=== PATIENT | male | born 1960 | race Caucasian/White ===

== ENCOUNTER 2021-03-06 17:44 | Inpatient (IN) ==
--- NOTE | 2021-03-06 17:12 | History & Physical Report ---
Date of Service March 06, 2021 Assessment & Plan (1) Mass of larynx: Plan: For semiemergent/emergent tracheostomy under local followed by direct laryngoscopy and esophagoscopy and biopsies. 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 for emergent tracheostomy Allergies Allergy/AdvReac Type Severity Reaction Status Date / Time No Known Drug Allergies Allergy Unknown Verified 03/06/21 15:24 Home Medications Medication Instructions Recorded Confirmed Type albuterol sulfate 90 mcg/actuation 1 inh INHALATION Q6H PRN #8 g 03/04/21 03/06/21 Rx aerosol inhaler amoxicillin 875 mg-potassium 1 tab PO BID #20 tab 03/04/21 03/06/21 Rx clavulanate 125 mg tablet (Augmentin) prednisone 20 mg tablet 60 mg PO DAILY 4 Days #12 tab 03/04/21 03/06/21 Rx Past Med/Surg History Medical History No pertinent past medical history Surgical History History of thumb surgery 2004 Family History Mother Cancer Hypertension Father Cancer Hypertension Heart disease Hearing loss Other No family history of bleeding disorder Denies family history of Asthma Social History Smoking Status: Current every day smoker Tobacco Type: Cigarettes packs per day: 1; Hx Alcohol Use: No Hx Substance Use: No Preferred Language: Algerian Communication Ability: Effective marital status: Single current occupational status: employed current occupation: Telehealth Case Manager Feels Safe at Home: Yes Physical Exam Constitutional: WD/WN, vitals as above With audible hoarseness no actual stridor Eyes: PERRL, conjunctivae normal, anicteric sclerae ENMT: external ear and nose normal, oropharynx normal 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
[2021-03-06] MEDS ORDERED: ceFAZolin 2,000 MG/15 ML IV PUSH IV ONE (18:28)
[2021-03-06] MEDS ORDERED: LIDOCAINE 2%/EPINEPHRINE 1:100,000 20ML ONE (18:55)
[2021-03-06] MEDS ORDERED: EpINEphrine HCL INJ 1 MG/ML 1ML SYRINGE ONE (18:57)
--- NOTE | 2021-03-06 19:37 | Anesthesiology Consultation ---
Date of Service March 06, 2021 Assessment & Plan Chart Review Chart Review: Acceptable Risk for Surgery and Patient NOT seen in Pre Admission Testing Consults Requested none ASA [id number] Proposed Anesthesia Anesthesia Type: MAC Risk / Benefits Reviewed With: PT / POA / Parent / Guardian, Accepts Plan and Informed Consent Obtained Additional Notes Patient left AMA 2 days ago. At that time had a known airway tumor and was hyponatremic. He represented today with worsening airway and requires emergent trach placement per Dr. Fournier. He is not appropriately NPO. He cannot lie flat. Repeat labs ordered to check sodium. Will plan for local trach with 1-2 mg of midazolam only. Cannot have more sedation. Even with this plan, pt is at high risk for loss of airway. Will call in NON MORSE INTERCEPT TECHNICIAN to ensure an extra set of hands in the event of airway loss. If repeat sodium is no longer critical patient can have GA via trach after trach is placed for biopsy. If he remains hyponatremic, GA for airway biopsy should be delayed until his hyponatremia is managed. History Surgery Operation Date: 03/06/21 11:15 Proposed Procedures p Tracheostomy, - Reina Fournier MD s Direct Laryngoscopy, - Reina Fournier MD s Esophagoscopy with Biopsies - Reina Fournier MD Height/Weight Height: 6 ft 1 in Weight: 87.5 kg Allergies Allergy/AdvReac Type Severity Reaction Status Date / Time No Known Drug Allergies Allergy Unknown Verified 03/06/21 18:04 Medications Home Medications Medication Instructions Recorded Confirmed Last Taken albuterol sulfate 90 mcg/actuation 1 inh INHALATION Q6H PRN #8 g 03/04/21 03/06/21 03/06/21 14:00 aerosol inhaler amoxicillin 875 mg-potassium 1 tab PO BID #20 tab 03/04/21 03/06/21 03/06/21 04:30 clavulanate 125 mg tablet (Augmentin) prednisone 20 mg tablet 60 mg PO DAILY 4 Days #12 tab 03/04/21 03/06/21 03/06/21 04:30 NPO Date Last Intake of Fluids: 03/06/21 Time Last Intake of Fluids: 12:00 Date Last Intake of Solids: 03/06/21 Time Last Intake of Solids: 12:00 Last Intake of Solids Comment: lois, Chewed tobacco at 2 PM Past Medical History Medical History History of alcohol abuse pt has been sober for 18 years from the date of February 2021 No pertinent past medical history Smoker Exercise / Class Metabolic Activity III < 4 Walking/Shop/Light housework Negative for chest pain - positive for SOB Past Family History Family History Mother Cancer Hypertension Father Cancer Hypertension Heart disease Hearing loss Other No family history of bleeding disorder Denies family history of Asthma Past Surgical History Surgical History History of thumb surgery 2004 Past Anesthesia History No Hx of Anesthesia Complications History of PONV No Hx of PONV and No Hx of Motion Sickness Social History Smoking Status: Current every day smoker tobacco type: cigarettes Smoking cigarettes per day: 15 Do You Dip or Chew Tobacco: Yes Hx Alcohol Use: No Hx Substance Use: No substance use type: does not use Review of Systems Patient denies active symptoms of GERD. Positive for SOB Unable to lie completely flat Negative for CP Physical Exam Vital Signs Last Vital Signs Temp 36.6 C 03/06/21 18:09 Pulse 96 H 03/06/21 18:09 Resp 18 03/06/21 18:09 BP 116/76 03/06/21 18:09 Pulse Ox 97 03/06/21 18:09 Constitutional not obese ENMT Mouth: + poor dentition (extensive peridontal disease, missing teeth, denies loose teeth); no TMJ abnormality and oral opening not small Thyromental Distance: > or= 3.5 Finger Breadths Mallampati Class: III Neck normal visual inspection; neck extension not limited Respiratory normal respiratory effort Auscultation: + diminished lung sounds and + wheezes Cardiovascular Rate/Rhythm: regular rate and regular rhythm Heart Sounds: no murmur Neurologic moves all extremities Psychiatric Orientation: alert and oriented x 3 Testing Electrocardiogram Date: 03/04/21 Findings: + NSR @ (82) Left axis deviation Abnormal ECG No previous ECGs available
[2021-03-06] MEDS ORDERED: MIDAZOLAM HCL 1 MG/ML 2ML VIAL ONE ×2 (20:05→20:51)
[2021-03-06 20:16] LABS: BUN Creatinine Ratio 31.8 (10-20); Calcium 9.2 mg/dl (8.5-10.1); Creatinine Clr Calc Pharmacy 109.6 ml/min; Est GFR (African American) 112.2 ml/min; Est GFR (Non-African American) 96.8 ml/min; Potassium 3.9 mmol/L (3.5-5.1)
[2021-03-06] MEDS ORDERED: ALBUTEROL HFA INHALER 8.5 GM ONE (20:26)
[2021-03-06] MEDS ORDERED: PROPOFOL IV EMULSION 10 MG/ML 20 ML VIAL IV ONE ×2 (20:52→21:31)
[2021-03-06] MEDS ORDERED: fentaNYL citrate 100 MCG/2 ML VIAL ONE (20:55)
[2021-03-06] MEDS ORDERED: ROCURONIUM BROMIDE 10 MG/ML 5 ML VIAL IV ONE (21:37)
[2021-03-06] MEDS ORDERED: GLYCOPYRROLATE 0.2 MG/ML VIAL ONE (21:58)
[2021-03-06] MEDS ORDERED: ONDANSETRON INJ 2 MG/ML 2 ML VIAL ONE (21:58)
[2021-03-06] MEDS ORDERED: NEOSTIGMINE METHYLSULFATE 1 MG/ML 10ML VIAL ONE (21:58)
[2021-03-06] MEDS ORDERED: oxyCODONE/ACETAMINOPHEN 5mg/325mg TAB PO PRN (21:58)
[2021-03-06] MEDS ORDERED: ONDANSETRON INJ 2 MG/ML 2 ML VIAL IV PRN ×2 (21:58→22:49)
--- NOTE | 2021-03-06 21:58 | Operative Report ---
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 I identified the patient and participated in the time-out.: Yes Procedure Operation Date: 03/06/21 11:15 Actual Procedures p Tracheostomy(Not Applicable) - Reina Fournier MD s Direct Laryngoscopy(Not Applicable) - Reina Fournier MD s Esophagoscopy with Biopsies(Not Applicable) - Reina Fournier MD Surgeon Reina Fournier MD Shank Cementer Hand None Estimated Blood Loss 40 Findings Consistent with Post-Op Diagnosis Large transglottic tumor Specimens Right true vocal cord and right false vocal cord biopsies Anesthesia Type MAC Complications None Indications Large right vocal cord exophytic tumor extending through thyroid cartilage paralyzed right vocal cord Description of Procedure He was brought to the operating room, properly identified, prepped and draped with ChloraPrep and then draped in the usual sterile manner. Local anesthesia was obtained by injecting along the incision line with 2% Xylocaine with 1- 100,000 strength epinephrine. The incision was made 2 cm above the sternal notch using the 15 blade carried down through the skin and subcutaneous layer using the 15 blade. Hemostasis was controlled using needlepoint Bovie. Some subcutaneous fat was excised to expose the strap muscles. Midline dissection was performed using the 15 blade and the needlepoint Bovie. The isthmus of the thyroid was encountered over the trachea and had to be divided using the needlepoint Bovie. Bleeders were controlled using hemostats and the Bovie. The second ring was retracted superiorly incision was made through the third and fourth ring and a stay suture was placed around the fourth ring. At this point the tracheostomy tube was inserted with the trach air/ocean export clerk and the trach hook retracting the second ring superiorly. Oxygen and CO2 were verified and then the patient was given general anesthetic via the tracheostomy. Attention was turned to the pharynx. Rigid esophagoscopy was performed using the cervical esophagoscope noting no post cricoid lesions and noting normal esophageal mucosa to the cervical esophagus. Direct laryngoscopy was performed using the Dedo laryngoscope visualizing the endolarynx which had 1 mm space. Large tumor from the right true vocal cord and right false vocal cord were biopsied. Hemostasis was noted to be good. He tolerated the procedure well and was taken to the ICU. I attest to the content of the Intraoperative Record and any orders documented therein. Any exceptions are noted below.
[2021-03-06] MEDS ORDERED: ICU PROTOCOL FOR HYPERGLYCEMIA PRN (21:59)
[2021-03-06 22:07] LABS: iSTAT Creatinine 0.8 mg/dl (0.6-1.3); iSTAT Hemoglobin 12.6 g/dl (14.0-18.0); iSTAT Ionized Calcium 1.33 mmol/l (1.12-1.32)
[2021-03-06] MEDS: LACTATED RINGER'S 1,000 ML IV SCH (22:40)
[2021-03-06] MEDS ORDERED: ePHEDrine sulfate 50 MG/ML AMP IV PRN (22:49)
[2021-03-06] MEDS ORDERED: fentaNYL citrate 100 MCG/2 ML VIAL IV PRN (22:49)
[2021-03-06] MEDS ORDERED: HYDROmorphone INJ 2 MG/ML SYR/VIAL IV PRN (22:49)
[2021-03-06] MEDS ORDERED: ATROPINE SULFATE 0.1 MG/ML 10ML SYR IV PRN (22:49)
--- NOTE | 2021-03-06 22:49 | Anesthesiology Progress Note ---
Date of Service March 06, 2021 Anesthesia Post Procedure Vital Signs Vital Signs: Temp Pulse Resp BP Pulse Ox 03/06/21 22:30 36.6 C 90 16 155/93 H 97 03/06/21 22:15 98 H 25 H 130/95 95 03/06/21 18:09 36.6 C 96 H 18 116/76 97 Transfer of Care Handoff Completed per policy Notes Mental Status: alert / awake / arousable and participated in evaluation Patient Amnestic to Procedure: Yes Nausea / Vomiting: adequately controlled Pain: adequately controlled Airway Patency, RR, SpO2: stable & adequate BP & HR: stable & adequate Hydration State: stable & adequate Anesthetic Complications: no major complications apparent and Pt Satisfied with anesthetic care
[2021-03-06] MEDS ORDERED: LEVALBUTEROL HCL 0.63 MG/3 ML NEB INH PRN (23:12)
[2021-03-06] MEDS ORDERED: ACETAMINOPHEN 1000 MG/100 ML IV IV ONE (23:18)
[2021-03-06] MEDS ORDERED: MoRPHine SULFATE 2 MG/ML CARP ONE (23:18)
--- NOTE | 2021-03-06 23:31 | History & Physical Report ---
Date of Service March 06, 2021 Assessment & Plan (1) Mass of larynx: (2) Hyponatremia: Plan: 60-year-old male past medical history significant for COPD admitted to ICU s/p tracheostomy, direct laryngoscopy/esophagoscopy and biopsies of laryngeal mass. Laryngeal mass, s/p urgent/emergent tracheostomy: Sore throat and hoarseness for 1 year. Known smoking history. 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 Saw Dr. Fournier in [facility] office, noted to have paralysis of the right true vocal cord and 2 mm glottis This evening underwent tracheostomy and panendoscopy with laryngeal mass biopsies this evening. Repeat CBC in the AM. Care per Dr. Fournier and ICU post-op. Hyponatremia: Labwork on 03/04 showed a Na of 128; on admission today Na is 135. Repeat BMP in the morning. CODE STATUS: Full code FEN: N.p.o., LR at 100 cc/hr DVT prophylaxis: SCDs Dispo: ICU for postop monitoring s/p tracheostomy Admission and Anticipated Discharge Date Admission Date: March 06, 2021 History of Present Illness Chief Complaint: Laryngeal mass, urgent need for trach Primary Care Provider: NO PCP 60-year-old male past medical history significant for COPD, cigarette smoker admitted following urgent/emergent tracheostomy as well as biopsies of laryngeal mass. In short, patient has had sore throat and hoarseness for 1 year. 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 Saw Dr. 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 He was admitted to the ICU for continued monitoring postop. He is alert and oriented and is able to answer questions by shaking his head yes or no. Allergies Allergy/AdvReac Type Severity Reaction Status Date / Time No Known Drug Allergies Allergy Unknown Verified 03/06/21 18:04 Home Medications Medication Instructions Recorded Confirmed Type albuterol sulfate 90 mcg/actuation 1 inh INHALATION Q6H PRN #8 g 03/04/21 03/06/21 Rx aerosol inhaler amoxicillin 875 mg-potassium 1 tab PO BID #20 tab 03/04/21 03/06/21 Rx clavulanate 125 mg tablet (Augmentin) prednisone 20 mg tablet 60 mg PO DAILY 4 Days #12 tab 03/04/21 03/06/21 Rx Past Med/Surg History Medical History History of alcohol abuse pt has been sober for 18 years from the date of February 2021 No pertinent past medical history Smoker Surgical History History of thumb surgery 2005 Family History Mother Cancer Hypertension Father Cancer Hypertension Heart disease Hearing loss Other No family history of bleeding disorder Denies family history of Asthma Social History Smoking Status: Current every day smoker Tobacco Type: Cigarettes packs per day: 1; Cigarettes Per Day: 15; Second Hand Exposure: Yes; Do You Dip or Chew Tobacco: Yes; Tobacco Cessation Education Requested by Patient: No Hx Alcohol Use: No Hx Substance Use: No Preferred Language: Nepali Communication Ability: Effective Ux Research Associate Required: No Beliefs That Will Affect Care: None marital status: Single Current Living Situation: Alone current occupational status: employed current occupation: Lift Driver Other Information That Helps Us Care for You: No Feels Safe at Home: Yes Safety Concerns: Feels Safe At This Time Assistive Devices: Glasses Review of Systems Review of Systems: yes/no questions asked Constitutional: + malaise; no fever and no chills Respiratory: + cough; no dyspnea Cardiovascular: no chest pain Gastrointestinal: no abdominal pain Physical Exam Constitutional: WD/WN, vitals as above Eyes: PERRL, conjunctivae normal, anicteric sclerae ENMT: external ear and nose normal, oropharynx normal Neck: + anterior neck swelling Respiratory: normal respiratory effort and + cough Auscultation: + crackles (bibasilar) Cardiovascular: RRR, no murmur, no edema Gastrointestinal (Abdomen): normal bowel sounds, soft, nontender, no hepatosplenomegaly Musculoskeletal: no cyanosis or clubbing, extremities motor strength 5/5 Skin: no rashes, warm and dry Neurologic: No focal motor deficits Psychiatric: A+Ox3, euthymic affect Results & Data Results & Data ([facility]) Vital Signs (Past 12 Hours) Vital Signs Temp Pulse Pulse Resp BP Pulse Ox 03/06/21 22:40 36.6 C 75 18 131/76 97 03/06/21 22:30 36.6 C 90 16 155/93 H 97 03/06/21 22:15 98 H 25 H 130/95 95 03/06/21 18:09 36.6 C 96 H 18 116/76 97 Code Status & VTE Plan VTE Prophylaxis Plan VTE Prophylaxis will be ordered: Yes Critical Care Time 35 minutes Supervising Physician Co-Signing Physician Notes Attending addendum: I have physically seen this patient, have supervised the medical residents activities, and agree with the H&P unless as otherwise noted. Assessment and Plan: Laryngeal mass/status post tracheostomy in the OR this evening- Admitted to intensive care unit Postop care per Dr. Fournier Consult fire department marine engineer Hyponatremia- On 03/04 sodium is 128, but admission today is 135 Repeat in a.m., LR at 100 mils per hour overnight COPD- DuoNebs every 2 hours as needed Was on outpatient prednisone. No stress dosing at this time Remaining orders and notations as noted Resident Activity Tracking Resident Involvement: Resident Care Provided Care Provided: Adult Hospital Medicine
--- NOTE | 2021-03-06 23:39 | Critical Care Consultation ---
Date of Consultation March 06, 2021 Assessment & Plan (1) Admitted to intensive care unit: Reason Critically Ill: 60-year-old male with new diagnosis of transglottic tumor requiring tracheostomy tube placement for airway protection. Patient to be monitored overnight status post new tracheostomy tube placement. NEURO - * CAM ICU: Negative * Pain: Morphine as needed CARDIAC/VASCULAR - * No significant past medical history of coronary artery disease, hypertension, etc. * Monitor on telemetry. RESPIRATORY - * Airway compromise: * Status post tracheostomy tube placement. * Continue with trach collar overnight. * Cool-mist humidifier. * Transition to pressure support if needed. * Aspiration pneumonia: * Postop chest x-ray demonstrates RIGHT lower lobe infiltrate. * IV Unasyn with transition to oral Augmentin. GI/NUTRITION - * N.p.o. overnight. * Prophylaxis: Famotidine RENAL/LYTES - * No significant electrolyte derangements. * IVF: LR@100mL/hr - * No concerns at this time. * Strict I&Os. ENDO - * No h/o DM or Thyroid Dz * BSGs per unit protocol. ISS --> gtt per unit policy. HEME/ONC - * New diagnosis of head and neck cancer. * s/p tracheostomy for airway protection. * Biopsies pending. * Will need outpatient oncology f/u. ID - * Pneumonia: * CXR concerning for ?? aspiration pneumonia. * IV Unasyn for now --> transition to Augmentin PO. LINES/IV ACCESS - * PIVs x2 * 8 0 Shiley tracheostomy DVT PROPHYLAXIS - * Hold s/p trach placement. * SCDs I have personally spent 32 minutes of critical care time in the direct management of this patient. This is a life/limb threatening event. This includes time spent evaluating patient, direct bedside care, chart review, placing orders, interpretation of diagnostic studies, discussion with consultants, patient, and family members, as well as other required patient management activities. This time is exclusive of all separately billable procedures, and teaching time and separate from and in addition to any other critical care service time. Thank you for allowing us to participate in the care of this patient. Please refer to my attending physician's documentation for any further recommendations. (2) Status post tracheostomy: (3) Mass of larynx: (4) Pneumonia: Supervising Physician Co-Signing Physician Notes I have personally evaluated and examined this patient. I agree with assessment and plan of Jeanne Mariano PA-C. Routine monitoring for post tracheostomy care. History of Present Illness Attending Physician: Gildardo Ferro MD History of Present Illness Patient is a 60-year-old male with no reported past medical history who presented to the emergency department on 03/04 with a chief complaint of difficulty breathing and a hoarse voice. He has been having difficulty with his voice over the last year. Per records, he was seen at the [facility] approximately year ago where he had a unremarkable CT scan performed. Unfortunately, over the last 2 weeks, the patient symptoms have worsened and he is now experiencing shortness of breath. Patient has a significant smoking history. He developed a sore throat 2 days ago with associated cough and blood- tinged sputum. CT scan of the soft tissues of the neck demonstrated transglottic tumor. Secondary to other commitments, the patient left the emergency department AMA. He did follow-up today with ENT. The patient was made a direct admit and was taken to the operating room for tracheostomy tube placement as well as biopsies. Patient had an uneventful placement of tracheostomy tube. He was brought to the ICU for ongoing neuro monitoring status post intervention. Upon evaluation in the ICU, patient is awake, alert, and oriented. He is unable to speak secondary to new tracheostomy tube placement. He can communicate by shaking his head. He shakes his head yes to sensation of discomfort in the neck. He nods his head yes when I ask if he has a cough. He denies any chest pain, nausea, vomiting, or abdominal discomfort. History of present illness limited secondary to inability to speak secondary to tracheostomy tube placement. Allergies Allergy/AdvReac Type Severity Reaction Status Date / Time No Known Drug Allergies Allergy Unknown Verified 03/06/21 18:04 Home Medications Medication Instructions Recorded Confirmed Type albuterol sulfate 90 mcg/actuation 1 inh INHALATION Q6H PRN #8 g 03/04/21 0 03/06/21 Rx aerosol inhaler amoxicillin 875 mg-potassium 1 tab PO BID #20 tab 03/04/21 03/06/21 Rx clavulanate 125 mg tablet (Augmentin) prednisone 20 mg tablet 60 mg PO DAILY 4 Days #12 tab 03/04/21 03/06/21 Rx Patient History Medical History History of alcohol abuse pt has been sober for 18 years from the date of February 2021 No pertinent past medical history Smoker Surgical History History of thumb surgery 2004 Family History Mother Cancer Hypertension Father Cancer Hypertension Heart disease Hearing loss Other No family history of bleeding disorder Denies family history of Asthma Social History Smoking Status: Current every day smoker Tobacco Type: Cigarettes packs per day: 1; Cigarettes Per Day: 15; Second Hand Exposure: Yes; Do You Dip or Chew Tobacco: Yes; Tobacco Cessation Education Requested by Patient: No Hx Alcohol Use: No Hx Substance Use: No Preferred Language: Citizen [place] Communication Ability: Effective Rotor Casting Machine Operator Required: No Beliefs That Will Affect Care: None marital status: Single Current Living Situation: Alone current occupational status: employed current occupation: [employer] Other Information That Helps Us Care for You: No Feels Safe at Home: Yes Safety Concerns: Feels Safe At This Time Assistive Devices: Glasses Physical Exam Physical Exam: VITAL SIGNS - Vital signs and nursing notes were reviewed. GENERAL - Well nourished, well developed 60-year-old male in no acute distress. Communicated by shaking head yes/no. HEAD - NC/AT with no obvious deformities. EYES - PERRL with EOMI bilaterally. Sclera without injection. Palpebral conjunctiva pink and moist. EARS - No deformities of external structures noted on gross examination bilaterally. NOSE - Midline and without cyanosis. MOUTH/OROPHARYNX - Without perioral cyanosis. Buccal mucosa pink and moist and without leukoplakia. NECK - Tracheostomy tube in place midline with blood tinged sputum noted from the tube. No nuchal rigidity. LUNGS - Chest wall symmetric without accessory muscle use, intercostals retractions, or central cyanosis. Coarse breath sounds noted throughout. CARDIAC - RRR with S1/S2. No murmur, rubs, or gallops appreciated. ABDOMEN - Abdominal contour obese without pulsations or visible masses. BS normoactive all four quadrants. No tenderness, palpable masses, hepatosplenomegaly, or ascites noted. Results & Data Results & Data ([facility] [place]) Vital Signs (Past 12 Hours) Vital Signs Temp Pulse Pulse Resp BP Pulse Ox 03/06/21 22:40 36.6 C 75 18 131/76 97 03/06/21 22:30 36.6 C 90 16 155/93 H 97 03/06/21 22:15 98 H 25 H 130/95 95 03/06/21 18:09 36.6 C 96 H 18 116/76 97 Coding Level of Care Code Critical Care 1st 30-74 mins Diagnoses Admitted to intensive care unit Z78.9 Status post tracheostomy Z93.0 Mass of larynx J38.7 Pneumonia J18.9 Laterality: right Lung location: lower lobe of lung Pneumonia type: due to unspecified organism Time Spent (min) 32 (1) Pneumonia Laterality: right Lung location: lower lobe of lung Pneumonia type: due to unspecified organism Qualified Code(s): J18.9 - Pneumonia, unspecified organism
[2021-03-07] MEDS: ACETAMINOPHEN 1000 MG/100 ML IV IV SCH ×3 (02:13→16:14)
[2021-03-07] MEDS: MoRPHine SULFATE 2 MG/ML CARP IV PRN ×2 (02:42→05:21)
[2021-03-07] MEDS: AMPICILLIN/SULBACTAM SOD 3,000 MG in 0.9 % SODIUM CHLORIDE 100 ML IV SCH ×4 (04:44→21:51)
[2021-03-07 05:18] LABS: Hemoglobin 11.7 g/dL (14.0-18.0); Mean Corpuscular Hgb Conc 33.4 g/dL (32-36); Mean Corpuscular Volume 92.8 fL (80-100); Mean Platelet Volume 9.5 fL (7.4-10.4); Platelet Count 404 K/uL (130-400); RDW Coefficient of Variation 14.3 % (11.5-14.5); RDW Standard Deviation 48.4 fL (36.4-46.3); Red Blood Count 3.77 M/uL (4.7-6.1); White Blood Count 20.23 K/uL (4.8-10.8)
[2021-03-07 05:35] LABS: Calcium 8.9 mg/dl (8.5-10.1); Creatinine Clr Calc Pharmacy 121.5 ml/min; Magnesium 2.4 mg/dl (1.8-2.4); Phosphorus 3.7 mg/dl (2.5-4.9); Potassium 4.1 mmol/L (3.5-5.1)
[2021-03-07 06:00] LABS: Basophils # (auto) 0.07 K/uL (0-0.2); Basophils % (auto) 0.3 %; Eosinophils # (auto) 0.57 K/uL (0-0.5); Eosinophils % (auto) 2.8 %; Immature Granulocytes # (auto) 0.07 K/uL (0.00-0.02); Immature Granulocytes % (auto) 0.3 %; Lymphocytes # (auto) 6.21 K/uL (1.2-3.4); Lymphocytes % (auto) 30.7 %; Monocytes # (auto) 1.45 K/uL (0.11-0.59); Monocytes % (auto) 7.2 %; Neutrophils # (auto) 11.86 K/uL (1.4-6.5); Neutrophils % (auto) 58.7 %
--- NOTE | 2021-03-07 06:19 | Critical Care Progress Note ---
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 Patient remains in the ICU for hemodynamic and neurologic monitoring following this procedure. NEURO - CAM ICU: Negative Pain: Morphine as needed * No acute needs otherwise CARDIAC/VASCULAR - * No significant past medical history of coronary artery disease, hypertension, or other CV disorders * Hemodynamically stable at present and overnight * Continue telemetry RESPIRATORY / HEME / ONC - Transglottic Tumor with Airway Compromise * Likely small business representative of primary head and neck cancer -- awaiting biopsies * Status post tracheostomy tube placement. * Continue with trach collar and cool-mist humidification -- not requiring supplemental O2 * ENT following * Will require outpatient oncologic follow-up * AM H&H stable GI/NUTRITION - * Continue NPO for now * PPX: Famotidine RENAL/LYTES - * Replete electrolytes as needed * Continue mIVF - * Strict I&Os ENDO - * ICU Hyperglycemia protocol ID - Concern for Aspiration PNA * Initial concern for RLL infiltrate on post-operative CXR * Add procal * Will discontinue IV Unasyn, transition to Augmentin LINES/IV ACCESS - PIVs x2, Shiley tracheostomy DVT PROPHYLAXIS - Hold s/p trach placement, SCDs Thank you for allowing us to be part of this patient's care. Please refer to Dr. Londono's documentation for any further recommendations. (2) Admitted to intensive care unit: (3) Mass of larynx: (4) Pneumonia: (5) Leukocytosis: (6) Hyponatremia: (7) COPD exacerbation: Admission and Anticipated Discharge Date Admission Date: March 06, 2021 Subjective No acute events overnight. Patient seen at bedside this morning, unable to provide meaningful verbal answers to questions secondary to tracheostomy tube, but is able to nod to yes/no questions. He denies any significant pain, does not discomfort within his throat region. Denies any chest pain, palpitations, shortness of breath. Denies any belly pain. No leg pain. No nausea or vomiting. Review of Systems Review of Systems: Other As per HPI -- partially unobtainable secondary to tracheostomy Physical Exam Physical Exam: General: Tired but well-appearing 60-year-old gentleman who is lying back in his hospital bed, asleep, upon my arrival. He awakens easily. Although he is unable to provide verbal answers to my questions, he does not in response, and seems to provide appropriate feedback. No acute distress. HEENT: NCAT. Eyes - Sclera are white, anicteric, and without injection. PERRL. EOMs display full ROM bilaterally. Mouth - MMM with no tonsillar edema or exudates. Tracheostomy tube in place. Cardiac: Normal rate and regular rhythm; S1 and S2 present with no murmurs, rubs , or gallops. Pulmonary: Good respiratory effort with symmetric expansion of the chest. No use of accessory muscles. Lungs were clear to auscultation bilaterally with no crackles or wheezes. Abdominal: Normoactive bowel sounds. Abdomen was soft, nondistended, and non- tender to palpation. Extremities: Upper and lower extremities are warm and well perfused. Capillary refill approximately 2 seconds. Psych: Well-developed, well-nourished, appropriately dressed for occasion. Behavior is cooperative and appropriate. Affect is WNL. Insight is appropriate. Results & Data Results & Data ([facility]) Vital Signs (Past 12 Hours) Vital Signs Temp Pulse Pulse Pulse Resp BP BP 03/07/21 06:00 36.7 C 03/07/21 05:29 57 L 17 141/68 H 03/07/21 05:00 36.6 C 03/07/21 04:59 56 L 14 152/69 H 03/07/21 04:29 59 L 6 L 118/72 03/07/21 04:00 36.6 C 03/07/21 03:59 64 15 122/75 03/07/21 03:29 60 12 112/72 03/07/21 03:00 36.8 C 03/07/21 02:59 61 18 119/71 03/07/21 02:29 88 14 140/74 03/07/21 02:00 36.9 C 03/07/21 01:59 60 17 119/73 03/07/21 01:29 66 16 127/65 03/07/21 01:00 36.7 C 03/07/21 00:59 70 14 124/60 03/07/21 00:29 66 17 112/63 03/07/21 00:28 73 14 03/07/21 00:00 36.8 C 73 03/06/21 23:30 36.7 C 114 H 21 141/92 H 03/06/21 22:40 36.6 C 75 18 131/76 03/06/21 22:30 36.6 C 90 16 155/93 H 03/06/21 22:29 101 H 19 131/76 03/06/21 22:15 98 H 25 H 130/95 03/06/21 22:10 91 H 15 Pulse Ox Pulse Ox 03/07/21 06:00 03/07/21 05:29 95 03/07/21 05:00 03/07/21 04:59 94 03/07/21 04:29 99 03/07/21 04:00 03/07/21 03:59 99 03/07/21 03:29 99 03/07/21 03:00 03/07/21 02:59 98 03/07/21 02:29 96 03/07/21 02:00 03/07/21 01:59 98 03/07/21 01:29 99 03/07/21 01:00 03/07/21 00:59 98 03/07/21 00:29 96 03/07/21 00:28 99 03/07/21 00:00 98 03/06/21 23:30 100 03/06/21 22:40 97 03/06/21 22:30 97 03/06/21 22:29 98 03/06/21 22:15 95 03/06/21 22:10 97 Resident Activity Tracking Resident Involvement: Resident Care Provided Care Provided: Adult Hospital Medicine (1) Leukocytosis Leukocytosis type: unspecified Qualified Code(s): D72.829 - Elevated white blood cell count, unspecified (2) Pneumonia Laterality: right Lung location: lower lobe of lung Pneumonia type: due to unspecified organism Qualified Code(s): J18.9 - Pneumonia, unspecified organism
--- NOTE | 2021-03-07 07:08 | XRay Report ---
XR chest 1V portable CLINICAL HISTORY: s/p trach placement COMPARISON STUDY: Chest radiograph and chest CT March 04, 2021. FINDINGS: Interval tracheostomy tube placement as noted. There is no pneumothorax. Lung volumes are m ildly diminished. There is no evidence for pulmonary edema. Mild bibasilar opacities have developed. IMPRESSION: 1. Interval placement of a tracheostomy tube. 2. Low lung volumes with interval development of bibasilar opacities which likely reflect atelectasis although an infectious process could appear similar. ACT 112: Negative or not required by law. Electronically signed by: Olvin Madrid M.D. 03/07/2021 7:07 AM
[2021-03-07] MEDS: LACTATED RINGER'S 1,000 ML IV SCH (08:20)
[2021-03-07] MEDS: FAMOTIDINE 20 MG in SYRINGE 3 ML IV SCH ×2 (08:21→20:16)
--- NOTE | 2021-03-07 13:18 | ENT Consultation ---
Date of Consultation March 07, 2021 Assessment & Plan (1) Mass of larynx: emergent trach to contro; airway, await pathology, consult Dr. 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 glottis Allergies Allergy/AdvReac Type Severity Reaction Status Date / Time No Known Drug Allergies Allergy Unknown Verified 03/06/21 18:04 Home Medications Medication Instructions Recorded Confirmed Type albuterol sulfate 90 mcg/actuation 1 inh INHALATION Q6H PRN #8 g 03/04/21 03/06/21 Rx aerosol inhaler amoxicillin 875 mg-potassium 1 tab PO BID #20 tab 03/04/21 03/06/21 Rx clavulanate 125 mg tablet (Augmentin) prednisone 20 mg tablet 60 mg PO DAILY 4 Days #12 tab 03/04/21 03/06/21 Rx Patient History Medical History History of alcohol abuse pt has been sober for 18 years from the date of February 2021 No pertinent past medical history Smoker Surgical History History of thumb surgery 2005 Family History Mother Cancer Hypertension Father Cancer Hypertension Heart disease Hearing loss Other No family history of bleeding disorder Denies family history of Asthma Social History Smoking Status: Current every day smoker Tobacco Type: Cigarettes packs per day: 1; Cigarettes Per Day: 15; Second Hand Exposure: Yes; Do You Dip or Chew Tobacco: Yes; Tobacco Cessation Education Requested by Patient: No Hx Alcohol Use: No Hx Substance Use: No Preferred Language: Nepali Communication Ability: Effective Software Testing Specialist Required: No Beliefs That Will Affect Care: None marital status: Single Current Living Situation: Alone current occupational status: employed current occupation: Coach Wire[employer] Other Information That Helps Us Care for You: No Feels Safe at Home: Yes Safety Concerns: Feels Safe At This Time Assistive Devices: Glasses Physical Exam Constitutional: WD/WN, vitals as above Eyes: PERRL, conjunctivae normal, anicteric sclerae ENMT: external ear and nose normal, oropharynx normal Neck: + anterior neck swelling (3 cm right level 2 node) Respiratory: normal respiratory effort, lungs clear to auscultation Cardiovascular: RRR, no murmur, no edema Results & Data ([facility]) Vital Signs (Past 12 Hours) Vital Signs Temp Pulse Resp BP Pulse Ox Pulse Ox 03/07/21 08:00 63 96 03/07/21 07:59 36.4 C L 57 L 14 114/64 95 03/07/21 07:29 77 15 137/79 98 03/07/21 06:59 63 17 143/71 H 100 03/07/21 06:29 55 L 14 113/69 97 03/07/21 06:00 36.7 C 03/07/21 05:59 70 13 147/79 H 95 03/07/21 05:29 57 L 17 141/68 H 95 03/07/21 05:00 36.6 C 03/07/21 04:59 56 L 14 152/69 H 94 03/07/21 04:29 59 L 6 L 118/72 99 03/07/21 04:00 36.6 C 03/07/21 03:59 64 15 122/75 99 03/07/21 03:29 60 12 112/72 99 03/07/21 03:00 36.8 C 03/07/21 02:59 61 18 119/71 98 03/07/21 02:29 88 14 140/74 96 03/07/21 02:00 36.9 C 03/07/21 01:59 60 17 119/73 98 03/07/21 01:29 66 16 127/65 99
--- NOTE | 2021-03-07 15:29 | Radiation OncologyConsultation ---
Date of Consultation March 07, 2021 Assessment & Plan (1) Mass of larynx: Assessment: Mr. 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 The patient was admitted to the hospital on 03/04/2021 however he left AMA and then represented to the hospital and was admitted for emergent tracheostomy to protect his airway by Dr. Fournier. The patient also underwent a laryngoscopy at the same time of placement of the emergent tracheostomy which revealed a large laryngeal mass involving the right true and false vocal cords. The patient did have a CT of the neck completed as well which did reveal a large infiltrative glottic mass with involvement of the adjacent cricoid and thyroid thyroid cartilage with pathologic right level 2 and level 3 cervical lymph nodes. Pathology is pending at this point. I been asked to evaluate the patient regarding the role for radiation therapy. Treatment Options: 1. Laryngectomy followed by adjuvant radiation therapy with or without chemotherapy (preferred if patient a surgical candidate). 2. Definitive chemotherapy and radiation therapy. Plan: 1. CT neck with IV contrast to better determine if patient is aid ENT to determine if patient is candidate for laryngectomy. 2. Follow-up pathology results to confirm squamous cell carcinoma. 3. PET/CT scan in outpatient setting. 4. Medical oncology consultation outpatient setting. 5. Input from ENT/ENT Oncology to determine if patient is surgical candidate. Preference is for laryngectomy if possible due to thyroid/cricoid cartilage involvement followed by post operative radiation therapy with or without chemotherapy. 6. Radiation oncology will continue to follow the patient and document as needed. No role for radiation therapy at this time. History of Present Illness Attending Physician: Pedro Henderson History of Present Illness 2019 to 02/2021. 1 year history of progressive hoarseness with sore throat and dysphagia. 03/04/2021. Chest x-ray. IMPRESSION: No acute process. 03/04/2021. CT of chest. IMPRESSION: 1. Partially imaged ill-defined infiltrative soft tissue lesion of the glottis and subglottic airway measures up to at least 2 cm. There is invasion into the adjacent soft tissues with mild bony erosion of the thyroid cartilage. Primary head and neck carcinoma is the diagnosis of exclusion. ENT consultation with direct visualization recommended. 2. No adenopathy or definite evidence of metastatic disease. 3. Emphysema with subsegmental right lower lobe groundglass opacities suggestive of an infectious or inflammatory pneumonitis. 4. There are a few low suspicion scattered bilateral solid pulmonary nodules noted as above measuring up to 4 mm. 03/04/2021. CT of neck without contrast. IMPRESSION: 1. Heterogeneous infiltrative mass of the glottis with supraglottic and infraglottic extension invades the right aryepiglottic fold, right piriform sinus and adjacent cricoid and thyroid cartilage. Finding's are suggestive of primary head and neck carcinoma. ENT follow-up recommended. 2. Pathologic right level II and III cervical chain lymph nodes compatible with jina metastatic disease. 03/06/2021. Direct laryngoscopy, esophagoscopy and tracheostomy by Dr. Fournier. Findings include large tumor from the right true vocal cord and right false vocal cord were biopsy. Tracheostomy placed. Pathology pending. Allergies Allergy/AdvReac Type Severity Reaction Status Date / Time No Known Drug Allergies Allergy Unknown Verified 03/06/21 18:04 Home Medications Medication Instructions Recorded Confirmed Type albuterol sulfate 90 mcg/actuation 1 inh INHALATION Q6H PRN #8 g 03/04/21 03/06/21 Rx aerosol inhaler amoxicillin 875 mg-potassium 1 tab PO BID #20 tab 03/04/21 03/06/21 Rx clavulanate 125 mg tablet (Augmentin) prednisone 20 mg tablet 60 mg PO DAILY 4 Days #12 tab 03/04/21 03/06/21 Rx Patient History Medical History History of alcohol abuse pt has been sober for 18 years from the date of February 2021 No pertinent past medical history Smoker Surgical History History of thumb surgery 2004 Family History Mother Cancer Hypertension Father Cancer Hypertension Heart disease Hearing loss Other No family history of bleeding disorder Denies family history of Asthma Social History Smoking Status: Current every day smoker Tobacco Type: Cigarettes packs per day: 1; Cigarettes Per Day: 15; Second Hand Exposure: Yes; Do You Dip or Chew Tobacco: Yes; Tobacco Cessation Education Requested by Patient: No Hx Alcohol Use: No Hx Substance Use: No Preferred Language: Japanese Communication Ability: Unable Ham Pumper Required: No Beliefs That Will Affect Care: None marital status: Single Current Living Situation: Alone current occupational status: employed current occupation: Manager [employer] Other Information That Helps Us Care for You: No Feels Safe at Home: Yes Safety Concerns: Feels Safe At This Time Assistive Devices: Glasses Review of Systems Ear, Nose, Mouth, Throat: Patient currently has no voice quality due to tracheostomy. Patient has throat pain. Patient has multiple palpable lymph nodes. Physical Exam Constitutional: WD/WN, vitals as above well developed and well nourished Eyes: PERRL, conjunctivae normal, anicteric sclerae ENMT: external ear and nose normal, oropharynx normal Status post tracheostomy. Right cervical palpable lymph nodes noted. Neck: trachea midline, no thyromegaly Respiratory: normal respiratory effort, lungs clear to auscultation Cardiovascular: RRR, no murmur, no edema Gastrointestinal (Abdomen): normal bowel sounds, soft, nontender, no hepatosplenomegaly Musculoskeletal: no cyanosis or clubbing, extremities motor strength 5/5 Skin: no rashes, warm and dry Neurologic: patellar DTR's 2+ bilat, sensation intact and PERRL, EOMI, accommodation nl, no face palsy, no dysarthria Psychiatric: A+Ox3, euthymic affect
--- NOTE | 2021-03-07 19:39 | Billing Data ---
Date of Service March 07, 2021 Coding Level of Care Code Critical Care 1st -74 mins
--- NOTE | 2021-03-07 21:13 | Hospitalist Progress Note ---
Date of Service March 07, 2021 Assessment & Plan (1) Mass of larynx: Plan: 60-year-old male past medical history significant for COPD admitted to ICU s/p tracheostomy, direct laryngoscopy/esophagoscopy and biopsies of laryngeal mass. Laryngeal mass, s/p urgent/emergent tracheostomy: Sore throat and hoarseness for 1 year. Known smoking history. 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 Saw Dr. 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 Care per Dr. Fournier and ICU post-op. On 12/[address] scan of neck but with contrast to better evaliate if patient is a surgical candidate. Appreciate input from ENT and Radiation/Oncology (2) Hyponatremia: Plan: Labwork on 03/04 showed a Na of 128; on admission today Na is 135. Repeat BMP in the morning. Plan: CODE STATUS: Full code FEN: N.p.o., LR at 100 cc/hr DVT prophylaxis: SCDs Dispo: ICU for postop monitoring s/p tracheostomy Admission and Anticipated Discharge Date Admission Date: March 06, 2021 Subjective Patient reports no new symptoms. Review of Systems Review of Systems: All systems reviewed & are unremarkable except as noted in HPI & below Physical Exam Constitutional: WD/WN, vitals as above Eyes: PERRL, conjunctivae normal, anicteric sclerae Neck: trachea midline, no thyromegaly + anterior neck swelling (3 cm right level 2 node) Respiratory: normal respiratory effort Auscultation: + crackles (bibasilar) Cardiovascular: RRR, no murmur, no edema Gastrointestinal (Abdomen): normal bowel sounds, soft, nontender, no hepatosplenomegaly Psychiatric: A+Ox3, euthymic affect Results & Data Results & Data ([facility]) Vital Signs (Past 12 Hours) Vital Signs Temp Pulse Resp BP Pulse Ox Pulse Ox 03/07/21 17:30 66 16 133/60 95 03/07/21 16:59 78 16 149/104 H 95 03/07/21 16:29 36.9 C 51 L 16 144/68 H 95 03/07/21 16:00 65 96 03/07/21 15:59 53 L 16 156/74 H 93 03/07/21 15:00 57 L 16 152/68 H 96 03/07/21 14:29 36.9 C 65 4 L 144/66 H 97 03/07/21 13:59 83 3 L 131/65 97 03/07/21 13:30 92 H 6 L 125/76 98 03/07/21 12:59 55 L 0 L 114/67 97 03/07/21 12:29 50 L 16 126/70 97 03/07/21 11:31 55 L 16 92 03/07/21 10:30 56 L 16 140/68 98 03/07/21 09:59 51 L 16 111/66 96 03/07/21 09:29 49 L 16 156/73 H 96 PG Care Time/CCT Total # of Minutes Spent Total Time Spent with Patient: Total time spent is greater than 50% in coordination of care (as documented) at patient's floor/unit and/or counseling patient: Coding Level of Care Code 42656 Subseq Hosp Care Lvl 2 Diagnoses Mass of larynx J38.7 Hyponatremia E87.1 Time Spent (min) 25
[2021-03-08] MEDS: ACETAMINOPHEN 1000 MG/100 ML IV IV SCH ×2 (00:10→08:35)
[2021-03-08] MEDS: AMPICILLIN/SULBACTAM SOD 3,000 MG in 0.9 % SODIUM CHLORIDE 100 ML IV SCH ×4 (04:13→21:00)
[2021-03-08 05:50] LABS: Basophils # (auto) 0.05 K/uL (0-0.2); Basophils % (auto) 0.3 %; Eosinophils # (auto) 1.51 K/uL (0-0.5); Eosinophils % (auto) 8.3 %; Hematocrit (blood only) 38.1 % (42-52); Hemoglobin 12.6 g/dL (14.0-18.0); Immature Granulocytes # (auto) 0.05 K/uL (0.00-0.02); Immature Granulocytes % (auto) 0.3 %; Lymphocytes # (auto) 4.14 K/uL (1.2-3.4); Lymphocytes % (auto) 22.7 %; Mean Corpuscular Hemoglobin 31.9 pg (25-34); Mean Corpuscular Hgb Conc 33.1 g/dL (32-36); Mean Corpuscular Volume 96.5 fL (80-100); Monocytes # (auto) 1.17 K/uL (0.11-0.59); Monocytes % (auto) 6.4 %; Neutrophils # (auto) 11.31 K/uL (1.4-6.5); Platelet Count 389 K/uL (130-400); Red Blood Count 3.95 M/uL (4.7-6.1); White Blood Count 18.23 K/uL (4.8-10.8)
--- NOTE | 2021-03-08 06:11 | Critical Care Progress Note ---
Date of Service March 08, 2021 Assessment & Plan (1) Status post tracheostomy: Plan: Reason Critically Ill: This is a 60-year-old male with a history of COPD and tobacco abuse who presented with a new diagnosis of transglottic tumor that required emergent tracheostomy tube placement by ENT for airway protection. Patient remains in the ICU for hemodynamic and neurologic monitoring following this procedure. 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 * Status post tracheostomy tube placement with biopsies * Continue with trach collar and cool-mist humidification -- not requiring supplemental O2 * Management per ENT: - Anticipate CT-Neck with contrast today for surgical planning - Anticipate video swallow - Radiation oncology consulted * Discontinue scheduled Tylenol * AM H&H stable GI/NUTRITION - * Continue NPO for now * PPX: Famotidine RENAL/LYTES - * Replete electrolytes as needed * Continue mIVF - * Strict I&Os ENDO - * ICU Hyperglycemia protocol ID - Concern for Aspiration Pneumonitis * Initial concern for RLL infiltrate on post-operative CXR - likely pneumonitis * PCT normal, no fever, leukocytosis downtrending * Transition to Augmentin LINES/IV ACCESS - PIVs x2, Shiley tracheostomy DVT PROPHYLAXIS - Hold s/p trach placement, SCDs Thank you for allowing us to be part of this patient's care. Please refer to Dr. Londono's documentation for any further recommendations. (2) Admitted to intensive care unit: (3) Mass of larynx: (4) Pneumonia: (5) Leukocytosis: (6) Hyponatremia: (7) COPD exacerbation: Admission and Anticipated Discharge Date Admission Date: March 06, 2021 Supervising Physician Co-Signing Physician Notes Dr. Todd was resident physician during care of patient. I separately evaluated patient for hudson portions of the history and the exam. I was present during the critical portion of medical decision making, and I discussed the case with the resident. I generally agree with the findings and plan. Disposition per ENT Subjective No acute events overnight. Patient seen at bedside this morning. He is still unable to provide verbal answers to questions, secondary to open tracheostomy. As such, questions are all yes no answers with nods. He denies any significant pain. Denies any difficulty breathing. Denies any chest pain, palpitations, shortness of breath. Denies any nausea or vomiting. Endorses good appetite. Review of Systems Review of Systems: Other Unobtainable due to tracheostomy Physical Exam Physical Exam: General: Well-appearing 60-year-old gentleman who is lying back in his hospital bed, awake, upon my arrival. He is in no acute distress. HEENT: NCAT. Eyes - Sclera are white, anicteric, and without injection. PERRL. Mouth - MMM with no tonsillar edema or exudates. Tracheostomy in place. Cardiac: Normal rate and regular rhythm; S1 and S2 present with no murmurs, rubs, or gallops. Pulmonary: Good respiratory effort with symmetric expansion of the chest. No use of accessory muscles. Intermittent in the soft bilateral rales. Abdominal: Normoactive bowel sounds. Abdomen was soft, nondistended, and non- tender to palpation. Extremities: Upper and lower extremities are warm and well perfused. Radial and dorsalis pedis pulses were 2+ b/l. Capillary refill assessed in UE was < 3 sec. Psych: Well-developed, well-nourished, appropriately dressed for occasion. Behavior is cooperative and appropriate. Affect is WNL. Insight is appropriate. Results & Data Results & Data ([facility]) Vital Signs (Past 12 Hours) Vital Signs Temp Pulse Pulse Resp BP BP Pulse Ox 03/08/21 06:00 49 L 1 L 162/68 H 95 03/08/21 05:30 74 0 L 129/110 H 95 03/08/21 04:30 45 L 0 L 148/72 H 97 03/08/21 04:00 36.7 C 66 0 L 137/90 99 03/08/21 03:29 54 L 0 L 113/60 98 03/08/21 02:30 51 L 0 L 161/90 H 97 03/08/21 01:59 46 L 1 L 126/70 98 03/08/21 01:29 62 0 L 133/64 97 03/08/21 00:59 52 L 0 L 110/65 95 03/08/21 00:29 50 L 0 L 133/67 96 03/08/21 00:00 50 L 07//21 23:59 65 0 L 143/73 H 97 03/07/21 23:15 03/07/21 23:00 36.8 C 60 0 L 154/71 H 98 03/07/21 22:43 16 03/07/21 22:25 52 L 03/07/21 22:00 78 0 L 122/64 97 03/07/21 21:58 36.8 C 53 L 16 122/64 96 03/07/21 21:29 48 L 0 L 150/71 H 94 03/07/21 20:59 54 L 0 L 124/59 L 98 03/07/21 20:29 56 L 0 L 130/66 97 03/07/21 20:00 36.8 C 03/07/21 19:29 54 L 0 L 108/54 L 97 03/07/21 18:29 50 L 0 L 127/67 97 Pulse Ox 03/08/21 06:00 03/08/21 05:30 03/08/21 04:30 03/08/21 04:00 03/08/21 03:29 03/08/21 02:30 03/08/21 01:59 03/08/21 01:29 03/08/21 00:59 03/08/21 00:29 03/08/21 00:00 97 03/07/21 23:59 03/07/21 23:15 94 03/07/21 23:00 03/07/21 22:43 03/07/21 22:25 03/07/21 22:00 03/07/21 21:58 03/07/21 21:29 03/07/21 20:59 03/07/21 20:29 03/07/21 20:00 03/07/21 19:29 03/07/21 18:29 Resident Activity Tracking Resident Involvement: Resident Care Provided Care Provided: Adult Hospital Medicine (1) Leukocytosis Leukocytosis type: unspecified Qualified Code(s): D72.829 - Elevated white blood cell count, unspecified (2) Pneumonia Laterality: right Lung location: lower lobe of lung Pneumonia type: due to unspecified organism Qualified Code(s): J18.9 - Pneumonia, unspecified organism
[2021-03-08 06:17] LABS: BUN Creatinine Ratio 16.3 (10-20); Creatinine Clr Calc Pharmacy 124.8 ml/min; Est GFR (African American) 118.3 ml/min; Est GFR (Non-African American) 102.1 ml/min
[2021-03-08] MEDS: FAMOTIDINE 20 MG in SYRINGE 3 ML IV SCH ×2 (08:35→21:00)
--- NOTE | 2021-03-08 09:57 | Billing Data ---
Date of Service March 08, 2021 Coding Level of Care Code 16287 Subseq Hosp Care Lvl 1
[2021-03-08] MEDS ORDERED: ACETAMINOPHEN 325 MG TAB PO PRN (09:58)
[2021-03-08] MEDS ORDERED: OPTIRAY 320 100ml IV ONE (11:51)
--- NOTE | 2021-03-08 12:34 | Fluoroscopy Report ---
FL video swallow CLINICAL HISTORY: 60 years-old Male with r/o aspiration s/p trach and new HNCA. Acute dysphasia TECHNIQUE: Video fluoroscopic evaluation of swallowing was performed in the AP and lateral projection s by the speech pathology staff. The patient is fed nectar-thick, thin liquid barium, and a barium co ated wafer. FLUOROSCOPY TIME: 1.0 minutes. COMPARISON STUDY: CT soft tissue neck of same day FINDINGS: There is normal hyoid excursion and epiglottic deflection. No significant penetration or as piration identified. Swallowing function is within normal limits. IMPRESSION: 1. No aspiration identified. 2. Please see the speech pathologist report for detailed findings and recommendations. ACT 112: Negative or not required by law. Electronically signed by: Ben Coy M.D. 03/08/2021 12:32 PM
--- NOTE | 2021-03-08 12:46 | CT Scan Report ---
CT soft tissue neck w con HISTORY: Evaluate cervical mass. TECHNIQUE: Multiaxial CT images of the neck were performed following the intravenous administration o f 95 cc of Optiray 320. Sagittal and coronal reformations were performed at the workstation by the ra diologist. COMPARISON STUDY: CT neck 03/04/2021. FINDINGS: The imaged intracranial structures demonstrate no acute abnormality. The orbits are within normal limits. The nasopharynx and oropharynx are patent. There is an infiltrative ill-defined soft t issue mass involving the right aspect of the glottis with supraglottic and infraglottic extension. Th e margins of the mass are difficult to measure, however measure up to at least 3.3 x 2.7 cm. There is medial displacement with focal area of erosion of the right cricoid cartilage with sclerosis and ero sions of the right thyroid cartilage. This lesion extends to the midline anteriorly results in partia l erosion of the left anterior thyroid cartilage. This lesion extends into the right vocal cord with severe airway narrowing of up to 75% at this location. The carotid arteries are not involved. Interva l placement of a tracheostomy tube which appears in good position. This likely accounts for the small and gas within the neck base. There is opacification of the right piriform sinus. Heterogeneity of t he thyroid without discrete nodule. Pathologically enlarged right level 2 cervical chain lymph node measures 2.5 x 1.9 cm with associated necrosis. Multiple additional mildly enlarged right cervical lymph nodes which are partially necroti c. These are located within the right level 3 and right level 5 stations. Emphysema. No acute fractur e. Degenerative changes of the cervical spine. Mild mucoperiosteal thickening of the paranasal sinuse s. The mastoid air cells are clear. IMPRESSION: 1. Heterogeneous infiltrative mass of the glottis with supraglottic and infraglottic extension which invades the right aryepiglottic fold, right piriform sinus and adjacent cricoid and thyroid cartilage as described above. 2. Pathologic right level II, III, and V cervical chain lymph nodes compatible with jina metastatic disease.. 3. The this lesion does not involve the right carotid arteries. 4. Interval placement of a tracheostomy tube which appears in good position. This likely accounts for the small and soft tissue gas within the neck. ACT 112: Negative or not required by law. Electronically signed by: Michel Sands M.D. 03/08/2021 12:44 PM
--- NOTE | 2021-03-08 20:40 | Hospitalist Progress Note ---
Date of Service March 08, 2021 Assessment & Plan (1) Mass of larynx: Plan: 60-year-old male past medical history significant for COPD admitted to ICU s/p tracheostomy, direct laryngoscopy/esophagoscopy and biopsies of laryngeal mass. Laryngeal mass, s/p urgent/emergent tracheostomy: Sore throat and hoarseness for 1 year. Known smoking history. 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 Saw Dr. 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 Care per Dr. Fournier and ICU post-op. On 12/[address] scan of neck but with contrast to better evaluate if patient is a surgical candidate. Awaiting further input from ENT and Radiation/Oncology Follow-up pathology results to confirm squamous cell carcinoma. (2) Hyponatremia: Plan: Labwork on 03/04 showed a Na of 128; on admission today Na is 135. Repeat BMP in the morning. Plan: CODE STATUS: Full code FEN: N.p.o., LR at 100 cc/hr DVT prophylaxis: SCDs Dispo: ICU for postop monitoring s/p tracheostomy Admission and Anticipated Discharge Date Admission Date: March 06, 2021 Subjective Patient cannot talk due to trach, however he can make gestures and answer yes and no questions Patient reports that he is comfortable and has no new complaints at this time. He does report that he has not had a bowel movement today or yesterday, but does not want a laxative at this time. Review of Systems Review of Systems: All systems reviewed & are unremarkable except as noted in HPI & below Physical Exam Constitutional: WD/WN, vitals as above Eyes: PERRL, conjunctivae normal, anicteric sclerae Neck: trachea midline, no thyromegaly + anterior neck swelling (tracheostomy in place) Respiratory: normal respiratory effort Auscultation: + crackles (bibasilar) Cardiovascular: RRR, no murmur, no edema Gastrointestinal (Abdomen): normal bowel sounds, soft, nontender, no hepatosplenomegaly Psychiatric: A+Ox3, euthymic affect Results & Data Results & Data ([facility]) Vital Signs (Past 12 Hours) Vital Signs Temp Pulse Resp BP Pulse Ox 03/08/21 19:59 59 L 18 138/65 94 03/08/21 19:30 58 L 16 140/100 94 03/08/21 19:00 36.7 C 03/08/21 18:59 60 18 157/77 H 95 03/08/21 17:00 74 10 L 161/92 H 98 03/08/21 16:29 65 0 L 170/78 H 98 03/08/21 16:00 69 03/08/21 15:59 64 16 147/85 H 98 03/08/21 15:29 73 14 160/85 H 97 03/08/21 14:59 68 14 146/80 H 98 03/08/21 14:29 99 H 16 154/89 H 98 03/08/21 13:59 77 14 161/82 H 95 03/08/21 13:29 55 L 12 141/74 H 97 03/08/21 12:49 76 12 03/08/21 11:29 76 14 155/72 H 95 03/08/21 10:59 76 12 166/97 H 99 03/08/21 10:00 63 15 158/83 H 99 03/08/21 09:29 58 L 14 152/73 H 99 03/08/21 08:59 59 L 14 139/70 97 PG Care Time/CCT Total # of Minutes Spent Total Time Spent with Patient: Total time spent is greater than 50% in coordi nation of care (as documented) at patient's floor/unit and/or counseling patient: Coding Level of Care Code 70815 Subseq Hosp Care Lvl 2 Diagnoses Mass of larynx J38.7 Hyponatremia E87.1 Time Spent (min) 25
[2021-03-09] MEDS: AMPICILLIN/SULBACTAM SOD 3,000 MG in 0.9 % SODIUM CHLORIDE 100 ML IV SCH ×4 (04:39→21:10)
[2021-03-09 04:59] LABS: Basophils # (auto) 0.03 K/uL (0-0.2); Basophils % (auto) 0.2 %; Eosinophils # (auto) 1.89 K/uL (0-0.5); Eosinophils % (auto) 11.6 %; Hematocrit (blood only) 37.2 % (42-52); Hemoglobin 12.2 g/dL (14.0-18.0); Immature Granulocytes # (auto) 0.05 K/uL (0.00-0.02); Immature Granulocytes % (auto) 0.3 %; Lymphocytes # (auto) 3.65 K/uL (1.2-3.4); Lymphocytes % (auto) 22.5 %; Mean Corpuscular Hemoglobin 30.9 pg (25-34); Mean Corpuscular Hgb Conc 32.8 g/dL (32-36); Mean Corpuscular Volume 94.2 fL (80-100); Monocytes # (auto) 0.92 K/uL (0.11-0.59); Monocytes % (auto) 5.7 %; Neutrophils % (auto) 59.7 %; Platelet Count 386 K/uL (130-400); RDW Coefficient of Variation 13.7 % (11.5-14.5); RDW Standard Deviation 47.7 fL (36.4-46.3); Red Blood Count 3.95 M/uL (4.7-6.1); White Blood Count 16.24 K/uL (4.8-10.8)
[2021-03-09 05:25] LABS: BUN Creatinine Ratio 17.3 (10-20); Calcium 8.8 mg/dl (8.5-10.1); Creatinine Clr Calc Pharmacy 116.7 ml/min; Est GFR (African American) 115.1 ml/min; Est GFR (Non-African American) 99.3 ml/min; Potassium 3.8 mmol/L (3.5-5.1)
[2021-03-09] MEDS: FAMOTIDINE 20 MG in SYRINGE 3 ML IV SCH ×2 (07:59→21:10)
--- NOTE | 2021-03-09 13:09 | Ears,Nose,Throat Progress Note ---
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 There was also subglottic extension. This is a transglottic tumor that went through the thyroid cartilage with paralysis of the right true vocal cord. There is also a 2 cm right side level 2 node. I did again discuss laryngectomy which the patient does not desire. P16 staining pending. If positive his prognosis would be better. Per patient desires will most likely proceed with PET scan followed by chemo induction and radiation. Surgery would be reserved for salvage. He can be transferred to PCU and begin training for trach care at home, possible transfer to rehab for further training. Will have to maintain his tracheostomy tube through the entire radiation treatment.. Admission and Anticipated Discharge Date Admission Date: March 06, 2021 Subjective Feels well, eating well Physical Exam Constitutional: WD/WN, vitals as above Eyes: PERRL, conjunctivae normal, anicteric sclerae ENMT: external ear and nose normal, oropharynx normal Neck: 2 cm right level 2 node Results & Data ([facility]) Vital Signs (Past 12 Hours) Vital Signs Temp Pulse Resp BP Pulse Ox 03/09/21 11:30 98 H 16 130/84 95 03/09/21 10:29 71 6 L 143/81 H 94 03/09/21 09:29 69 1 L 133/76 97 03/09/21 08:29 68 12 154/81 H 98 03/09/21 07:36 74 16 148/76 H 93 03/09/21 07:29 37.0 C 94 H 8 L 148/76 H 91 03/09/21 06:29 55 L 0 L 154/76 H 96 03/09/21 06:03 36.7 C 03/09/21 05:29 73 16 155/93 H 95 03/09/21 04:29 61 18 138/75 94 03/09/21 03:29 81 21 147/81 H 95 03/09/21 02:29 60 22 147/72 H 95 03/09/21 02:00 36.6 C 03/09/21 01:29 55 L 21 128/70 93
--- NOTE | 2021-03-09 23:09 | Hospitalist Progress Note ---
Date of Service March 09, 2021 Assessment & Plan (1) Mass of larynx: Plan: 60-year-old male past medical history significant for COPD admitted to ICU s/p tracheostomy, direct laryngoscopy/esophagoscopy and biopsies of laryngeal mass. Laryngeal mass, s/p urgent/emergent tracheostomy: Sore throat and hoarseness for 1 year. Known smoking history. 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 Saw Dr. 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 Care per Dr. Fournier and ICU post-op. On 12/[address] scan of neck but with contrast to better evaluate if patient is a surgical candidate. Further plan is dependent on pathology results. (2) Hyponatremia: Plan: Labwork on 03/04 showed a Na of 128; on admission today Na is 135. resolved Plan: CODE STATUS: Full code FEN: N.p.o., LR at 100 cc/hr DVT prophylaxis: SCDs Dispo: ICU for postop monitoring s/p tracheostomy Admission and Anticipated Discharge Date Admission Date: March 06, 2021 Subjective Patient reports feeling comfortable. Review of Systems Review of Systems: All systems reviewed & are unremarkable except as noted in HPI & below Physical Exam Physical Exam: Constitutional: WD/WN, vitals as above Eyes: PERRL, conjunctivae normal, anicteric sclerae Neck: trachea midline, no thyromegaly + anterior neck swelling (tracheostomy in place) Respiratory: normal respiratory effort Auscultation: + crackles (bibasilar) Cardiovascular: RRR, no murmur, no edema Gastrointestinal (Abdomen): normal bowel sounds, soft, nontender, no hepatosplenomegaly Psychiatric: A+Ox3, euthymic affect Results & Data Results & Data ([facility]) Vital Signs (Past 12 Hours) Vital Signs Temp Pulse Pulse Resp BP BP Pulse Ox 03/09/21 19:22 37.6 C H 72 18 150/81 H 97 03/09/21 18:29 66 4 L 151/76 H 98 03/09/21 17:29 69 1 L 146/92 H 97 03/09/21 16:29 77 8 L 142/79 H 95 03/09/21 16:00 94 H 03/09/21 15:30 75 18 140/83 97 03/09/21 14:29 81 18 151/82 H 96 03/09/21 13:30 83 18 143/80 H 94 03/09/21 12:30 104 H 16 165/80 H 93 03/09/21 11:30 98 H 16 130/84 95 PG Care Time/CCT Total # of Minutes Spent Total Time Spent with Patient: Total time spent is greater than 50% in coordination of care (as documented) at patient's floor/unit and/or counseling patient: Coding Level of Care Code 54334 Subseq Hosp Care Lvl 2 Diagnoses Mass of larynx J38.7 Hyponatremia E87.1
[2021-03-10] MEDS: AMPICILLIN/SULBACTAM SOD 3,000 MG in 0.9 % SODIUM CHLORIDE 100 ML IV SCH ×4 (04:11→21:27)
[2021-03-10] MEDS: FAMOTIDINE 20 MG in SYRINGE 3 ML IV SCH ×2 (08:23→21:27)
--- NOTE | 2021-03-10 14:50 | Ears,Nose,Throat Progress Note ---
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 Will have to get PET scan as outpatient. P16 staining still pending. Agree with Dr. Rachel this would be a difficult case for him. However this is the patient's preference. (2) Status post tracheostomy: Plan: Speech therapy input appreciated. Discharge planning tomorrow will decide whether he can go home with home health care versus [facility]. If he does go home he will need suctioning and teaching on the change of the inner cannula. I will then step him down to a #6 cuffless fenestrated Shiley in 2 weeks. Admission and Anticipated Discharge Date Admission Date: March 06, 2021 Subjective Continues to improve. Minimal to no pain. Work with speech therapy but was not not able to carry on a conversation, can speak short sentences with trach plugged. Speech therapy feels that he is not yet a candidate for Passy-Nic valve. Physical Exam Neck: trachea midline (Trach in good position) and + submandibular swelling (Right level 2 node) Respiratory: Clear via trach Results & Data ([facility]) Vital Signs (Past 12 Hours) Vital Signs Temp Pulse Pulse Resp BP Pulse Ox 03/10/21 11:40 36.8 C 84 18 129/65 96 03/10/21 08:00 36.6 C 72 18 157/73 H 98 03/10/21 07:08 55 L 03/10/21 04:00 37.1 C 73 18 158/88 H 94
--- NOTE | 2021-03-10 20:34 | Hospitalist Progress Note ---
Date of Service March 10, 2021 Assessment & Plan (1) Mass of larynx: Plan: 60-year-old male past medical history significant for COPD admitted to ICU s/p tracheostomy, direct laryngoscopy/esophagoscopy and biopsies of laryngeal mass. Laryngeal mass, s/p urgent/emergent tracheostomy: Sore throat and hoarseness for 1 year. Known smoking history. 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 Saw Dr. 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 Care per Dr. Fournier and ICU post-op. Appreciate input from ENT: Patient has decided on chemo induction and radiation and not laryngectomy. Will need PET scan as outpatient. P16 staining still pending. Speech therapy input appreciated. Discharge planning tomorrow will decide whether he can go home with home health care versus the [facility]. If he does go home he will need suctioning and teaching on the change of the inn er cannula. Dr. Fournier will step him down to a #6 cuffless fenestrated Shiley in 2 weeks. (2) Hyponatremia: Plan: Labwork on 03/04 showed a Na of 128; on admission today Na is 135. resolved Plan: CODE STATUS: Full code FEN: N.p.o., LR at 100 cc/hr DVT prophylaxis: SCDs Dispo: ICU for postop monitoring s/p tracheostomy Admission and Anticipated Discharge Date Admission Date: March 06, 2021 Subjective 60 yo male has no new complaints. Review of Systems Review of Systems: All systems reviewed & are unremarkable except as noted in HPI & below Physical Exam Constitutional: WD/WN, vitals as above Eyes: PERRL, conjunctivae normal, anicteric sclerae Neck: trachea midline, no thyromegaly + anterior neck swelling (tracheosto my in place) Respiratory: normal respiratory effort Auscultation: + crackles (bibasilar) Cardiovascular: RRR, no murmur, no edema Gastrointestinal (Abdomen): normal bowel sounds, soft, nontender, no hepatosplenomegaly Psychiatric: A+Ox3, euthymic affect Results & Data Results & Data ([facility]) Vital Signs (Past 12 Hours) Vital Signs Temp Pulse Pulse Resp BP Pulse Ox 03/10/21 19:16 37.0 C 76 18 171/89 H 98 03/10/21 17:00 36.8 C 86 18 134/65 96 03/10/21 16:00 78 03/10/21 12:00 36.8 C 88 18 125/70 95 03/10/21 11:40 36.8 C 84 18 129/65 96 PG Care Time/CCT Total # of Minutes Spent Total Time Spent with Patient: Total time spent is greater than 50% in coordination of care (as documented) at patient's floor/unit and/or counseling patient: Coding Level of Care Code 02278 Subseq Hosp Care Lvl 2 Diagnoses Mass of larynx J38.7 Hyponatremia E87.1 Time Spent (min) 25
[2021-03-11] MEDS: AMPICILLIN/SULBACTAM SOD 3,000 MG in 0.9 % SODIUM CHLORIDE 100 ML IV SCH ×4 (04:19→21:17)
[2021-03-11] MEDS: FAMOTIDINE 20 MG in SYRINGE 3 ML IV SCH ×2 (08:37→21:17)
--- NOTE | 2021-03-11 20:12 | Ears,Nose,Throat Progress Note ---
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 He would like to try to go home if possible versus [facility]. Please schedule PET scan as outpatient. (2) Status post tracheostomy: Plan: Trach in good position. I can change tracheostomy tube in the office next week as outpatient. Admission and Anticipated Discharge Date Admission Date: March 06, 2021 Subjective He is comfortable with no pain and eating well. Physical Exam Neck: Trach in good position, healing well, stay sutures in place, no sign of infection, 2 cm right level 2 node Results & Data ([facility]) Vital Signs (Past 12 Hours) Vital Signs Temp Pulse Pulse Resp BP Pulse Ox 03/11/21 18:59 36.5 C 87 20 125/78 98 03/11/21 15:21 37.2 C 67 19 129/73 96 03/11/21 11:44 98 03/11/21 11:13 37.1 C 102 H 20 127/77 98
--- NOTE | 2021-03-11 21:07 | Hospitalist Progress Note ---
Date of Service March 11, 2021 Assessment & Plan (1) Mass of larynx: Plan: 60-year-old male past medical history significant for COPD admitted to ICU s/p tracheostomy, direct laryngoscopy/esophagoscopy and biopsies of laryngeal mass. Laryngeal mass, s/p urgent/emergent tracheostomy: Sore throat and hoarseness for 1 year. Known smoking history. 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 Saw Dr. Fournier in [facility] office, noted to have paralysis of the right true vocal cord and 2 mm glottis On 12/05 underwent tracheostomy and panendoscopy with laryngeal mass biopsies Care per Dr. Fournier and ICU post-op. Pathology: invasive moderately-differentiated squamous cell carcinoma, P16 staining is NEGATIVE Appreciate input from ENT: Patient has decided on chemo induction and radiation and not laryngectomy. Will need PET scan as outpatient Speech therapy input appreciated. gave him teaching on valve Discharge planning for tomorrow -- home with home health care set up for tracheostomy care, suctioning and teaching on the change of the inner cannula. Dr. Fournier will step him down to a #6 cuffless fenestrated Shiley in 2 weeks. 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: Plan: P16 negative will need PET scan outpatient will follow up with oncology (3) Hyponatremia: Plan: resolved, likely from poor solute intake prior to admission (4) Status post tracheostomy: Plan: CODE STATUS: Full code FEN: N.p.o., LR at 100 cc/hr DVT prophylaxis: SCDs Dispo: ICU for postop monitoring s/p tracheostomy Admission and Anticipated Discharge Date Admission Date: March 06, 2021 Subjective patient doing well eating well, no throat pain, breathing comfortably appreciate RT input, needs another day to watch on trach appreciate ENT input, will follow up with them in two weeks patient confirms he was radiation / chemotherapy will plan to go home tomorrow, he is independent and would not qualify for rehab Review of Systems Review of Systems: All systems reviewed & are unremarkable except as noted in Subjective Ear, Nose, Mouth, Throat: + problem reported (cannot speak with tracheostomy) Results & Data Results & Data ([facility]) Vital Signs (Past 12 Hours) Vital Signs Temp Pulse Pulse Resp BP Pulse Ox 03/11/21 18:59 36.5 C 87 20 125/78 98 03/11/21 15:21 37.2 C 67 19 129/73 96 03/11/21 11:44 98 03/11/21 11:13 37.1 C 102 H 20 127/77 98 Medications Administered Current Inpatient Medications Acetaminophen (Acetaminophen 325 Mg Tab) 650 mg PO Q4H PRN PRN Reason: Pain Stop: 04/07/21 09:57 Last Admin: 03/08/21 21:01 Dose: 650 mg Documented by: Famotidine 20 mg/ Syringe 5 mls @ 2.5 mls/min IV Q12H JANET Stop: 04/06/21 08:59 Last Admin: 03/11/21 08:37 Dose: 2.5 mls/min Documented by: Ampicillin Sodium/Sulbactam Sodium 3,000 mg/ Sodium Chloride 108 mls @ 200 mls/hr IV Q6H JANET; Protocol Stop: 03/14/21 03:59 Last Infusion: 03/11/21 16:51 Dose: Infused Documented by: Levalbuterol HCl (Levalbuterol Hcl 0.63 Mg/3 Ml Neb) 0.63 mg INH Q4H PRN PRN Reason: Dyspnea Stop: 04/05/21 23:11 Morphine Sulfate (Morphine Sulfate 2 Mg/Ml Carp) 2 mg IV Q3H PRN PRN Reason: Pain Stop: 03/20/21 23:09 Last Admin: 03/07/21 05:21 Dose: 2 mg Documented by: Ondansetron HCl (Ondansetron Inj 2 Mg/Ml 2 Ml Vial) 4 mg IV Q6H PRN PRN Reason: Nausea And Vomiting Stop: 04/05/21 21:57 Last Admin: 03/06/21 23:20 Dose: 4 mg Documented by: PG Care Time/CCT Total # of Minutes Spent Total Time Spent with Patient: Total time spent is greater than 50% in coordination of care (as documented) at patient's floor/unit and/or counseling patient: Coding Level of Care Code 51365 Subseq Hosp Care Lvl 2 Diagnoses Mass of larynx J38.7 Hyponatremia E87.1 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
[2021-03-12] MEDS: AMPICILLIN/SULBACTAM SOD 3,000 MG in 0.9 % SODIUM CHLORIDE 100 ML IV SCH ×2 (05:09→10:02)
[2021-03-12] MEDS: FAMOTIDINE 20 MG in SYRINGE 3 ML IV SCH (10:01)
--- NOTE | 2021-03-12 12:50 | Discharge Summary ---
Date of Service March 12, 2021 Admission HPI Per Admitting Provider 60-year-old male past medical history significant for COPD, cigarette smoker admitted following urgent/emergent tracheostomy as well as biopsies of laryngeal mass. In short, patient has had sore throat and hoarseness for 1 year. 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 Saw Dr. 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 He was admitted to the ICU for continued monitoring postop. He is alert and oriented and is able to answer questions by shaking his head yes or no. 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 Discharge Exam Constitutional WD/WN, vitals as above Eyes PERRL, conjunctivae normal, anicteric sclerae ENMT external ear and nose normal, oropharynx normal (cannot speak due to tracheostomy) Neck trachea midline, + tracheostomy present and + facial hair Respiratory normal respiratory effort, lungs clear to auscultation Cardiovascular RRR, no murmur, no edema Gastrointestinal (Abdomen) normal bowel sounds, soft, nontender, no hepatosplenomegaly Musculoskeletal no cyanosis or clubbing, extremities motor strength 5/5 Skin no rashes, warm and dry Neurologic patellar DTR's 2+ bilat, sensation intact and PERRL, EOMI, accommodation nl, no face palsy, no dysarthria Psychiatric A+Ox3, euthymic affect Discharge Data Allergies Allergy/AdvReac Type Severity Reaction Status Date / Time No Known Drug Allergies Allergy Unknown Verified 03/06/21 18:04 Consultations 03/06/21 22:00 Consult One Piece Expansion Maker Hand Routine 03/06/21 23:20 Consult Otolaryngology (Head and Neck) Routine 03/07/21 12:29 Consult Radiation Oncology Routine Procedures Performed Operation Date: 03/06/21 11:15 Actual Procedures p Tracheostomy(Not Applicable) - Reina Fournier MD s Direct Laryngoscopy(Not Applicable) - Reina Fournier MD s Esophagoscopy with Biopsies(Not Applicable) - Reina Fournier MD Ordered Studies 03/07/21 21:28 CT soft tissue neck w con Routine 03/08/21 11:30 FL video swallow Routine Hospital Course (1) Mass of larynx: 60-year-old male past medical history significant for COPD admitted to ICU s/p tracheostomy, direct laryngoscopy/esophagoscopy and biopsies of laryngeal mass. Laryngeal mass, s/p urgent/emergent tracheostomy: Sore throat and hoarseness for 1 year. Known smoking history. 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 Saw Dr. 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 Fournier and ICU post-op. Pathology: invasive moderately-differentiated squamous cell carcinoma, P16 staining is NEGATIVE Appreciate input from ENT: Patient has decided on chemo induction and radiation and not laryngectomy. Will need PET scan as outpatient, script given to case planner to schedule Speech therapy input appreciated. gave him teaching on valve set up for tracheostomy care, suctioning and teaching on the change of the inner cannula. Dr. 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 Rachel) (3) Hyponatremia: resolved, likely from poor solute intake prior to admission (4) Status post tracheostomy: Total Time Total Time Spent Total Time Spent (In Minutes): 32 Discharge Plan Discharge Items Patient Disposition: Home - Home Health Services Reason For Visit: Right Laryngeal Carcinoma Discharge Diagnosis: Invasive squamous cell carcinoma of larynx Condition on Discharge: Good Goals: get PET scan follow up with Dr Fournier and oncology Activity: Resume your previous activity Non-emergency contact: Primary Care Provider and Surgeon Call non-emergency contact if: you have any medication questions and your symptoms worsen Follow-up/Referrals: Placido Rachel MD [Physician] - (2 weeks) Reina Fournier MD [Physician] - (next week) Olu Rachel MD [Surgeon] - (2 weeks) Lidia Chacon MD [Primary Care Provider] - 03/15/21 11:00 am (You are being established with a primary care physician at the [facility] in [place]. Your first appointment at this clinic has already been scheduled. If you need to change this appointment, please call #[phone]. ) Diet: Regular Addtl Attending Provider Instructions: Medications: no new medications Squamous cell carcinoma of larynx air way established with tracheostomy, will have home nursing help with tracheostomy care, teaching follow up with Dr. Fournier next week for exchange of tracheostomy follow up in 2-3 weeks with radiation and medical oncology for treatment will arrange for PET scan to be done in next 1-2 weeks, this will determine if there are distant metastases Pending Studies at Discharge: No Stand-Alone Forms: My [facility], Smoking Cessation Medications and DC Order Prescriptions: Discontinued prednisone 20 mg tablet 60 mg PO DAILY 4 Days Qty: 12 RF: 0 albuterol sulfate 90 mcg/actuation HFA aerosol inhaler 1 inh inhalation Q6H PRN (Reason: shortness of breath or wheezing) Qty: 8 RF: 0 amoxicillin-pot clavulanate [Augmentin] 875-125 mg tablet 1 tab PO BID Qty: 20 RF: 0 Discharge Orders: Discharge Order (Routine); Ordered 03/12/21 Ordered By: Taiwo Jose Admission Data Admit Date/Time: 03/06/21 22:00 Attending Provider: Taiwo Jose Admit Provider: Reina Fournier Primary Care Provider: Lidia Chacon Other Providers: Reina Fournier ; Placido Rachel ; [facility] ; [facility] Other Interventions: Discharge Summary Assessment (RN) Last Done: 03/12/21 12:50 Coding Level of Care Code D/C DAY MANAGEMENT >30 MINS Diagnoses Mass of larynx J38.7 Squamous cell carcinoma of overlapping sites of cartilage of larynx C32.3 Hyponatremia E87.1 Status post tracheostomy Z93.0
--- NOTE | 2021-03-22 16:12 | Coding Query ---
CODING QUERY To promote full compliance with coding requirements relating to patient care, provider participation is requested in all cases of orthopedic coder uncertainty. Please assist us with the question(s) below: Coding Question(s): Patient s/p laryngeal biopsy and tracheostomy . Postoperative CXR- aspiration pneumonia. Postop progress note documents aspiratoin pneumonia , IV Unasn given . Seeking to clarfy if aspiration pneumonia was treated . Please check the phrase below that applies. Thank you. Gerry Vivas [facility] Physician's Response(s): Patient was treated postop for aspiration pneumonia x_ Patient did not have aspiration pneumonia Cannot Clinically Correlate if patient had aspriation pneumonia Other: Please Document: Principal Diagnosis: "that condition established after study, to be chiefly responsible for occasioning the admission of the patient to the hospital for care." Co-Existing Principal Diagnosis: "when two or more diagnoses equally meet the criteria for principal diagnosis as determined by the circumstances of admission, diagnostic work up, and/or therapy provided, and the Alphabetic Index, Tabular List, or another coding guideline does not provide sequencing direction, any one of the diagnoses may be sequenced first." "When the physician has documented what appears to be a current diagnosis in the body of the record, but has not included the diagnosis in the final diagnostic statement, the physician should be asked whether the diagnosis should be added." (Source Coding Clinic 2 QTR90. p3-4) [facility]
== END 2021-03-12 01:15 | disposition home health service (06) | DRG 12 ==
LOC: ASU 17:44 → 1E 22:00 → SUATTDRO 22:00 → 2E 03-09 18:47
PROC: M.TRACH (2021-03-06 11:15)
PROC: M.ESOPH (2021-03-06 11:15)